=== PATIENT | male | born 1990 | race Two or more races ===

== ENCOUNTER 2016-07-18 10:22 | Emergency (ER) | payer OTHER ==
--- NOTE | 2016-07-18 10:26 | ED Physician Chart ---
Chief Complaint/HPI - Patient Information Date Seen:: 07/18/16 Time Seen:: 10:26 Chief Complaint:: shoulder pain History of Present Illness:: 25-year-old female who plans of acute, constant, worse with movement, aching and sharp, moderate to severe, 6-8 out of 10, nonradiating, right shoulder pain that happened yesterday afternoon in a snowboarding accident. Says he slammed his shoulder into the hard ice-packed snow. Took ibuprofen which seemed to improve the pain. Historian:: Patient Review:: Nurse's Note Reviewed Review of Systems - Review of Systems Other: Complete system review otherwise unremarkable except as noted in HPI. Past Medical History - Past Medical History Past Medical History: No significant medical hx Family History: None Social History: Non Smoker, No Alcohol, No Drug Use Surgical History: None Psychiatricy History: None Medication: None Family Medical History - Family Member Mother History Unknown: Yes Physical Exam - Physical Examination Other:: INITIAL VITAL SIGNS: Reviewed by me GENERAL: Alert and interactive. No acute distress HEAD: Head is normocephalic and atraumatic EYES: EOMI. . No scleral icterus. No conjunctival injection ENT: Moist mucous membranes. NECK: Supple. No masses. Full range of motion RESPIRATORY: No tachypnea. Clear breath sounds bilaterally. No wheezing, rales, or rhonchi CV: Regular rate and rhythm. No murmurs, rubs, or gallops ABDOMEN: Soft, non-distended, non-tender. No guarding. No rebound. No masses. EXTREMITIES: Right shoulder area has pain to palpation of the before meals joint. Limited range of motion above 90 due to pain. No ecchymosis, increased warmth to touch or edema. Distal extremity has good neurovascular exam. SKIN: Warm and dry. No obvious rashes. NEUROLOGIC: Alert and oriented. Face is symmetric. Speech is normal. Moves all extremities equally. Motor and sensory distally intact. Labs/Radiology/EKG Results - Radiology Results Results: X-ray right shoulder 2 views was interpreted independently and contemporaneously by Harpal Silva MD: No acute fractures Acromioclavicular joint separation versus dislocation No soft tissue foreign bodies Overall impression: Type II acromioclavicular joint separation Assessment Splint Care: Splint applied Post Procedure/Splint Exam: No Active Bleeding, Full Range of Motion, Neuro/ Vascular Exam Comments:: Placed a right shoulder sling/splint Splint Assessment: Neurovascularly intact post splint placement with good fit. ED Septic Shock - . Is Septic Shock (SBP<90, OR Lactate>4 mmol\L) present?: No Reassessment (Disposition) - Reassessment Reassessment:: The patient's blood pressure was elevated (>120/80) but appears stable without evidence of hypertensive emergency or urgency. The patient was counseled about the risks hypertension urged to pursue outpatient monitoring and therapy within a week with her primary care physician. Patient has a type II acromioclavicular joint separation. We've applied a shoulder immobilizer. Post-splinting check was done. Good neurovascular status. Patient has been taking Motrin. We provided a prescription for ibuprofen. Recommended shoulder sling immobilization for 3-7 days. Recommended follow-up with orthopedics. Gave return to ER precautions. Patient says he understands reasons the plan. Reassessment Condition:: Improved - Diagnosis Diagnosis:: Acromioclavicular joint separation, type II, acute, first visit Elevated blood pressure without diagnosis of hypertension - Aftercare/Follow up Instructions Aftercare/Follow-Up Instructions:: Counseled pt regarding lab results/diagnosis & need follow up Medication Prescribed:: Ibuprofen - Patient Disposition Discharge/Transfer:: Home Time:: 10:49 Condition at Disposition:: Improved ED Discharge Plan - Patient Disposition Admit/Discharge/Transfer: PT DISCHARGED HOME Condition at Disposition: Improved Prescriptions: Ibuprofen 600 mg PO TID PRN #0 tablet PRN Reason: Pain (Mild) Instructions: Acromioclavicular Separation with Rehab-Sports[facility] Accepting Physician: , Primary [Other]
--- NOTE | 2016-07-18 12:00 | Diagnostic Imaging Report ---
Right shoulder 2 views Indication: Trauma Comparison: none Findings: Right AC joint separation is noted. No evidence of an acute fracture of the glenohumeral dislocation. No significant focal soft tissue swelling. Impression: Right AC joint separation. No evidence of an acute fracture. In the setting of trauma, if clinical symptoms persist and there is continued concern for an occult fracture, follow up exams in 5-7 days is suggested.
== END 2016-07-18 10:50 | disposition home or self-care (01) ==
LOC: ER 10:22
DX: S43.101A Unspecified dislocation of right acromioclavicular joint, initial encounter (principal); R03.0 Elevated blood-pressure reading, without diagnosis of hypertension; W22.8XXA Striking against or struck by other objects, initial encounter; Y93.23 Activity, snow (alpine) (downhill) skiing, snowboarding, sledding, tobogganing and snow tubing; Y92.89 Other specified places as the place of occurrence of the external cause; Y99.8 Other external cause status
CPT/HCPCS: 73030-TC-RT; Z7502